=== PATIENT | female | born 1960 | race American Indian/Alaskan Native ===

== ENCOUNTER 2022-01-10 10:00 | Inpatient (IN) | payer SELFPAY ==
[2022-01-10 12:15] LABS: Basophils % (Auto) 0.1 % (0.0-1.8); Eosinophils % (Auto) 0.2 % (0.0-4.3); Hematocrit 43.8 % (30.3-42.9); Hemoglobin 14.3 gm/dl (10.1-14.3); Lymphocytes # (Auto) 0.8 K/mm3 (1.2-5.4); Lymphocytes % (Auto) 6.6 % (13.4-35.0); Mean Corpuscular HGB Conc 33 % (30-34); Mean Corpuscular Volume 99 fl (79-97); Monocytes # (Auto) 0.4 K/mm3 (0.0-0.8); Monocytes % (Auto) 3.5 % (0.0-7.3); Platelet Count 279 K/mm3 (140-440); Red Blood Count 4.43 M/mm3 (3.65-5.03); Red Cell Distribution Width 13.1 % (13.2-15.2)
[2022-01-10 12:32] LABS: Alanine Aminotransferase 437 units/L (7-56); Albumin 4.2 g/dL (3.9-5); Bilirubin,Direct 2.4 mg/dL (0-0.2); Blood Urea Nitrogen 15 mg/dL (7-17); Calcium 9.3 mg/dL (8.4-10.2); Hemolysis Index 7
[2022-01-10 12:43] LABS: BUN/Creatinine Ratio 21
[2022-01-10] MEDS ORDERED: SODIUM CHLORIDE 0.9% 1000 ML 1,000 ML IV ONE (12:57)
[2022-01-10] MEDS ORDERED: MORPHINE 4 MG/1 ML INJ IM ONE (12:57)
[2022-01-10] MEDS ORDERED: ONDANSETRON 4 MG/2 ML INJ IV ONE (12:57)
--- NOTE | 2022-01-10 13:46 | Ultrasound Report ---
ULTRASOUND ABDOMEN, LIMITED INDICATION / CLINICAL INFORMATION: upper abdominal pain - gallbladder. COMPARISON: None available. FINDINGS: PANCREAS: Visualized portion shows no significant abnormality. LIVER: No significant abnormality. Normal hepatopedal blood flow in the main portal vein. GALLBLADDER: Distended with stones. BILE DUCTS: No significant abnormality. Common bile duct measures 1.9 mm. FREE FLUID: None. ADDITIONAL FINDINGS: None. IMPRESSION: 1. Gallbladder distended with stones. 2. No biliary dilatation. Signer Name: Darius Koenig MD Signed: 01/10/2022 1:42 PM Workstation Name: [id number]
[2022-01-10 15:27] LABS: Hepatitis B Surface Antigen Non-Reactive (Negative); Hepatitis C Virus Antibody Non-Reactive (NonReactive)
[2022-01-10] MEDS ORDERED: PIPERACILLIN/TAZOBACTAM 3.375 3.375 GM/50 ML BAG IV ONE (15:40)
[2022-01-10] MEDS ORDERED: MORPHINE 4 MG/1 ML INJ IV ONE (16:05)
--- NOTE | 2022-01-10 16:10 | Cat Scan Report ---
CT ABDOMEN AND PELVIS WITH CONTRAST INDICATION / CLINICAL INFORMATION: abdominal pain upper abdominal pain 100ml of [id number] . TECHNIQUE: Axial CT images were obtained through the abdomen and pelvis after 100 cc of Omnipaque 350 IV contras t. Sagittal and coronal reformatted images. All CT scans at this location are performed using CT dose reduction for ALARA by means of automated exposure control. COMPARISON: Ultrasound abdomen limited performed earlier today FINDINGS: LOWER CHEST: Mild linear atelectasis or scarring is noted in the lingula and right lower lobe. No inf iltrate or effusion. LIVER: No significant abnormality. GALLBLADDER: Multiple stones are identified in the gallbladder with the largest measuring 1.7 cm near the gallbladder neck. There is no evidence for gallbladder distention on CTA. No pericholecystic flu id. BILE DUCTS: No significant abnormality. PANCREAS: There appears to be trace fluid and inflammatory changes near the distal pancreas. No discr ete mass. This may represent mild acute pancreatitis. SPLEEN: No significant abnormality. ADRENALS: No significant abnormality. RIGHT KIDNEY and URETER: No significant abnormality. LEFT KIDNEY and URETER: No significant abnormality. STOMACH and SMALL BOWEL: No significant abnormality. COLON: No significant abnormality. APPENDIX: No significant abnormality. PERITONEUM: No large ascites. No free air. No fluid collection. LYMPH NODES: No significant adenopathy. AORTA and ARTERIES: No significant abnormality. IVC and VEINS: No significant abnormality. URINARY BLADDER: No significant abnormality. REPRODUCTIVE ORGANS: No significant abnormality. ADDITIONAL FINDINGS: None. SKELETAL SYSTEM: Mild lumbar spondylosis. IMPRESSION: Cholelithiasis but no evidence for acute cholecystitis on CT. Subtle inflammatory changes are suggested involving the distal pancreas. Correlate for acute intersti tial pancreatitis. Signer Name: Andrew Selby Jr, MD Signed: 01/10/2022 4:05 PM Workstation Name: [id number]
[2022-01-10 16:55] LABS: INR 0.88 (0.87-1.13)
[2022-01-10 17:12] LABS: Hyaline Casts,Urine 4 /LPF; Mucus,Urine 3+ /HPF
[2022-01-10 17:28] LABS: Color,Urine Amber (Yellow)
--- NOTE | 2022-01-10 18:50 | History and Physical Report ---
History of Present Illness Chief complaint: My stomach hurts History of present illness: 61 YO Female with HTN, Mild Intermittent Asthma, Obesity presents to ED for evaluation. Pt reports "my stomach hurts". Patient states that she has experienced abdominal pain that began at 0100 hrs. shortly after eating a hamburger. Patient states that her abdominal pain is 6-01/2010, intermittent, worsened with meals, without alleviating factors. Patient acknowledges nausea. EMS was notified and upon arrival the patient was found to be in distress and subsequent transported to [facility] for further care and evaluation of the af orementioned symptoms. The patient was seen and evaluated in the emergency department. All lab and imaging studies reviewed. Patient with CT scan of the abdomen and pelvis and was found to have evidence of gallstone pancreatitis, elevated liver function tests, as well as systemic inflammatory response syndrome. Surgery team consulted in ED. GI team notified in ED. Patient admitted to medical floor due to increased risk of worsening symptoms and for medical stabilization. Patient has fever, chills, chest pain, palpitation, productive cough, skin rash, recent contact, ingestion of food/water from new or different sources, known exposure to COVID-19. No prior admission for review. No medication listed at time of admission for reconciliation. Advanced care planning conducted in ED. Past History Past Medical History: hypertension, other (See HPI) Past Surgical History: No surgical history, Other (Reviewed) Social history: single. denies: smoking, alcohol abuse, prescription drug abuse Family history: hypertension Medications and Allergies Allergies Allergy/AdvReac Type Severity Reaction Status Date / Time No Known Allergies Allergy Unverified 01/10/22 10:13 Review of Systems Constitutional: no weight loss, no weight gain, no fever, no chills Ears, nose, mouth and throat: no ear pain, no ear discharge, no nasal congestion, no sinus pressure Breasts: no change in shape, no swelling Cardiovascular: no chest pain, no palpitations, no edema, no syncope Respiratory: no cough, no shortness of breath Gastrointestinal: abdominal pain, nausea, no coffee ground emesis, no lactose intolerance Genitourinary Female: no pelvic pain, no flank pain, no dysuria, no urinary frequency, no urgency Rectal: no pain, no incontinence, no bleeding Musculoskeletal: no neck stiffness, no neck pain, no shooting arm pain, no arm numbness/tingling, no low back pain Integumentary: no rash, no pruritis, no redness, no sores, no wounds Neurological: no head injury, no transient paralysis, no weakness, no parathesias, no tingling, no seizures, no syncope Psychiatric: no anxiety, no memory loss, no change in sleep habits, no insomnia, no change in appetite, no suicidal ideation Endocrine: no cold intolerance, no heat intolerance, no polydipsia, no excessive sweating Hematologic/Lymphatic: no easy bruising, no easy bleeding Allergic/Immunologic: no urticaria, no allergic rhinitis, no wheezing Exam - Constitutional Vitals: Temp Pulse Resp BP Pulse Ox 98.3 F 60 18 164/79 96 01/10/22 16:43 01/10/22 16:43 01/10/22 16:43 01/10/22 16:43 01/10/22 16:43 General appearance: Present: mild distress, obese - EENT Eyes: Present: PERRL ENT: hearing intact, clear oral mucosa - Neck Neck: Present: supple, normal ROM - Respiratory Respiratory effort: normal Respiratory: bilateral: CTA - Cardiovascular Heart Sounds: Present: S1 & S2. Absent: rub, click - Extremities Extremities: pulses symmetrical, No edema Peripheral Pulses: within normal limits - Abdominal General gastrointestinal: Present: soft, tender, non-distended, normal bowel sounds Localized gastrointestinal: tender: diffuse Female genitourinary: Present: normal - Integumentary Integumentary: Present: clear, warm, dry - Musculoskeletal Musculoskeletal: gait normal, strength equal bilaterally - Psychiatric Psychiatric: appropriate mood/affect, intact judgment & insight - Neurologic Neurologic: CNII-XII intact, moves all extremities Results - Labs CBC & Chem 7: 01/10/22 11:31 01/10/22 11:31 Labs: Abnormal lab results 01/10/22 01/10/22 01/10/22 Range/Units 11:31 11:31 11:31 WBC 11.5 H (4.5-11.0) K/mm3 Hct 43.8 H (30.3-42.9) % MCV 99 H (79-97) fl RDW 13.1 L (13.2-15.2) % Lymph % (Auto) 6.6 L (13.4-35.0) % Lymph # (Auto) 0.8 L (1.2-5.4) K/mm3 Seg Neutrophils % 89.6 H (40.0-70.0) % Seg Neutrophils # 10.3 H (1.8-7.7) K/mm3 Glucose 178 H (65-100) mg/dL Total Bilirubin 3.00 H (0.1-1.2) mg/dL Direct Bilirubin 2.4 H (0-0.2) mg/dL AST 635 H (5-40) units/L ALT 437 H (7-56) units/L Alkaline Phosphatase 171 H (35-129) units/L Lipase 5216 H (13-60) units/L Assessment and Plan - Patient Problems (1) Acute gallstone pancreatitis Current Visit: Yes Status: Acute Plan to address problem: CT scan abdomen pelvis, abdominal ultrasound, surgery team consulted, GI team consulted, IV fluid resuscitation therapy, bowel rest, supportive care, pain control. (2) Obesity (BMI 30-39.9) Current Visit: Yes Status: Acute Plan to address problem: Balanced diet, increase physical activity discharge (3) SIRS (systemic inflammatory response syndrome) Current Visit: Yes Status: Acute Plan to address problem: Empiric IV antibiotic therapy x1 dose, CBC, repeat CBC in AM. (4) Acute hepatitis Current Visit: Yes Status: Acute Plan to address problem: Hepatitis profile, supportive care. (5) DVT prophylaxis Current Visit: Yes Status: Acute Plan to address problem: SCD to bilateral lower extremities while in bed (6) Advance care planning Current Visit: Yes Status: Acute Plan to address problem: Disease education conducted, care plan discussed, diagnosis discussed, prognosis discussed, patient is full code. Patient acknowledges understanding and agreement with care plan, +30 minutes. (7) Preventative health care Current Visit: Yes Status: Acute Plan to address problem: Patient counseled regarding risk factor reduction, outpatient follow-up with primary care physician for all age and risk factor appropriate screening test. +30 minutes.
[2022-01-10] MEDS ORDERED: ACETAMINOPHEN 325 MG TAB PO PRN (20:00)
[2022-01-10] MEDS ORDERED: oxyCODONE /ACETAMINOPHEN 5-325MG TAB PO PRN (20:00)
[2022-01-10] MEDS ORDERED: ALBUTEROL 2.5 MG/3 ML NEBU IH PRN (20:00)
[2022-01-10] MEDS: HYDROmorphone 0.5 MG/0.5 ML INJ IV PRN (21:55)
[2022-01-10] MEDS ORDERED: FAMOTIDINE 20 MG/2 ML INJ IV SCH (22:00)
[2022-01-10] MEDS: ONDANSETRON 4 MG/2 ML INJ IV PRN (22:01)
[2022-01-10] MEDS: SODIUM CHLORIDE 0.9% 1000 ML 1,000 ML IV SCH (22:07)
[2022-01-11] MEDS: ONDANSETRON 4 MG/2 ML INJ IV PRN (04:07)
[2022-01-11] MEDS: HYDROmorphone 0.5 MG/0.5 ML INJ IV PRN ×4 (04:07→21:51)
[2022-01-11] MEDS: SODIUM CHLORIDE 0.9% 1000 ML 1,000 ML IV SCH ×2 (04:08→21:51)
[2022-01-11 07:20] LABS: Basophils % (Auto) 0.1 % (0.0-1.8); Eosinophils # (Auto) 0.2 K/mm3 (0.0-0.4); Eosinophils % (Auto) 1.4 % (0.0-4.3); Hematocrit 36.9 % (30.3-42.9); Lymphocytes # (Auto) 1.3 K/mm3 (1.2-5.4); Lymphocytes % (Auto) 12.2 % (13.4-35.0); Mean Corpuscular HGB Conc 33 % (30-34); Mean Corpuscular Volume 99 fl (79-97); Monocytes # (Auto) 0.7 K/mm3 (0.0-0.8); Monocytes % (Auto) 6.6 % (0.0-7.3); Platelet Count 241 K/mm3 (140-440); Red Blood Count 3.74 M/mm3 (3.65-5.03); Red Cell Distribution Width 13.1 % (13.2-15.2)
[2022-01-11 07:39] LABS: Alanine Aminotransferase 259 units/L (7-56); Albumin 3.6 g/dL (3.9-5); BUN/Creatinine Ratio 13; Blood Urea Nitrogen 8 mg/dL (7-17); Calcium 8.7 mg/dL (8.4-10.2); Hemolysis Index 1
[2022-01-11] MEDS: FAMOTIDINE 20 MG/2 ML INJ IV SCH ×2 (09:55→21:51)
--- NOTE | 2022-01-11 10:02 | Gastroenterology Consultation ---
History of Present Illness - Reason for Consult Consult date: 01/11/22 biliary pancreatitis Requesting physician: DEMAR ALFARO - History of Present Illness The patient is a 61 yo female who presented with 1 day of abd pain in mid/epigastric abdomen with associated n/v. has had mild, intermittent abd pains in the past, but not to the level/degree experienced yesterday. Found to have elevated liver enzymes and labs/ct scan consistent with acute pancreatitis. Denies fevers/chills. Social alcohol intake but no excessive use. Denies prior h/o pancreatitis or new recent meds. has had improvement in abd pain with current management/since admission. CBD non-dilated on US. Past History Past Medical History: hypertension, other (See HPI) Past Surgical History: No surgical history, Other (Reviewed) Social history: single. denies: smoking, alcohol abuse, prescription drug abuse Family history: hypertension Medications and Allergies Allergies Allergy/AdvReac Type Severity Reaction Status Date / Time No Known Allergies Allergy Unverified 01/10/22 10:13 Home Medications Medication Instructions Recorded Confirmed Last Taken Type No Known Home Medications [No 01/11/22 01/11/22 Unknown History Reported Home Medications] Active Meds: Active Medications Acetaminophen (Acetaminophen 325 Mg Tab) 650 mg PO Q4H PRN PRN Reason: Pain MILD(1-3)/Fever >100.5/FLORES Albuterol (Albuterol 2.5 Mg/3 Ml Nebu) 2.5 mg IH Q4HRT PRN PRN Reason: Shortness Of Breath Famotidine (Famotidine 20 Mg/2 Ml Inj) 20 mg IV BID AAMIR Last Admin: 01/11/22 09:55 Dose: 20 mg Hydromorphone HCl (Hydromorphone 0.5 Mg/0.5 Ml Inj) 0.5 mg IV Q3H PRN PRN Reason: Pain , Severe (7-10) Last Admin: 01/11/22 09:55 Dose: 0.5 mg Sodium Chloride (Nacl 0.9% 1000 Ml) 1,000 mls @ 125 mls/hr IV DIRECT AAMIR Last Admin: 01/11/22 04:08 Dose: 125 mls/hr Ondansetron HCl (Ondansetron 4 Mg/2 Ml Inj) 4 mg IV Q8H PRN PRN Reason: Nausea And Vomiting Last Admin: 01/11/22 04:07 Dose: 4 mg Oxycodone/Acetaminophen (Oxycodone /Acetaminophen 5-325mg Tab) 1 tab PO Q6H PRN PRN Reason: Pain, Moderate (4-6) Sodium Chloride (Sodium Chloride 0.9% 10 Ml Flush Syringe) 10 ml IV BID AAMIR Last Admin: 01/11/22 09:55 Dose: 10 ml Sodium Chloride (Sodium Chloride 0.9% 10 Ml Flush Syringe) 10 ml IV PRN PRN PRN Reason: LINE FLUSH Stop: 01/15/22 18:48 Reviewed/updated patient's home and current medications Review of Systems - Review of Systems All systems: negative (per HPI) Exam - Constitutional Vital Signs: Temp Pulse Resp BP Pulse Ox 98.6 F 71 18 118/58 98 01/11/22 04:56 01/11/22 04:56 01/11/22 08:44 01/11/22 04:56 01/11/22 08:44 General appearance: no acute distress - Respiratory Respiratory effort: normal Respiratory: bilateral: CTA - Cardiovascular Rhythm: regular - Gastrointestinal General gastrointestinal: Present: soft, tender (epigastric ttp) - Integumentary Integumentary: Present: clear, warm - Neurologic Neurological: alert and oriented x3 - Psychiatric Psychiatric: appropriate mood/affect - Labs CBC & Chem 7: 01/11/22 06:22 01/11/22 06:22 Lab Results: Laboratory Results - last 24 hr 01/10/22 01/10/22 01/10/22 11:31 11:31 11:31 WBC 11.5 H RBC 4.43 Hgb 14.3 Hct 43.8 H MCV 99 H MCH 32 MCHC 33 RDW 13.1 L Plt Count 279 Lymph % (Auto) 6.6 L [place] % (Auto) 3.5 Eos % (Auto) 0.2 Baso % (Auto) 0.1 Lymph # (Auto) 0.8 L [place] # (Auto) 0.4 Eos # (Auto) 0.0 Baso # (Auto) 0.0 Seg Neutrophils % 89.6 H Seg Neutrophils # 10.3 H PT INR Sodium 138 Potassium 4.2 Chloride 103.6 Carbon Dioxide 24 Anion Gap 15 BUN 15 Creatinine 0.7 Estimated GFR > 60 BUN/Creatinine Ratio 21 Glucose 178 H Calcium 9.3 Total Bilirubin 3.00 H Direct Bilirubin 2.4 H Indirect Bilirubin 0.6 AST 635 H ALT 437 H Alkaline Phosphatase 171 H Ammonia Total Protein 6.9 Albumin 4.2 Albumin/Globulin Ratio 1.6 Lipase 5216 H Urine Color Urine Turbidity Specific [place] (Man) Ur Protein (Man) Ur Ketones (Man) Ur Nitrite (Man) Ur Reducing Substances Urine Bilirubin (Man) Urine Ictotest Leukocyte Esterase (Man) Urine WBC (Auto) Urine RBC (Auto) U Epithel Cells (Auto) Urine RBC (Manual) Uric Acid Crystals Hyaline Casts Urine Mucus Plasma/Serum Alcohol Hepatitis A IgM Ab Hep Bs Antigen Hep B Core IgM Ab Hepatitis C Antibody 01/10/22 01/10/22 01/10/22 13:05 13:05 13:05 WBC RBC Hgb Hct MCV MCH MCHC RDW Plt Count Lymph % (Auto) [place] % (Auto) Eos % (Auto) Baso % (Auto) Lymph # (Auto) [place] # (Auto) Eos # (Auto) Baso # (Auto) Seg Neutrophils % Seg Neutrophils # PT INR Sodium Potassium Chloride Carbon Dioxide Anion Gap BUN Creatinine Estimated GFR BUN/Creatinine Ratio Glucose Calcium Total Bilirubin Direct Bilirubin Indirect Bilirubin AST ALT Alkaline Phosphatase Ammonia 39.0 Total Protein Albumin Albumin/Globulin Ratio Lipase Urine Color Urine Turbidity Specific [place] (Man) Ur Protein (Man) Ur Ketones (Man) Ur Nitrite (Man) Ur Reducing Substances Urine Bilirubin (Man) Urine Ictotest Leukocyte Esterase (Man) Urine WBC (Auto) Urine RBC (Auto) U Epithel Cells (Auto) Urine RBC (Manual) Uric Acid Crystals Hyaline Casts Urine Mucus Plasma/Serum Alcohol < 0.01 Hepatitis A IgM Ab Non-reactive Hep Bs Antigen Non-reactive Hep B Core IgM Ab Non-reactive Hepatitis C Antibody Non-reactive 01/10/22 01/10/22 01/11/22 16:02 16:12 06:22 WBC 11.0 RBC 3.74 Hgb 12.0 Hct 36.9 D MCV 99 H MCH 32 MCHC 33 RDW 13.1 L Plt Count 241 Lymph % (Auto) 12.2 L [place] % (Auto) 6.6 Eos % (Auto) 1.4 Baso % (Auto) 0.1 Lymph # (Auto) 1.3 [place] # (Auto) 0.7 Eos # (Auto) 0.2 Baso # (Auto) 0.0 Seg Neutrophils % 79.7 H Seg Neutrophils # 8.7 H PT 12.9 INR 0.88 Sodium Potassium Chloride Carbon Dioxide Anion Gap BUN Creatinine Estimated GFR BUN/Creatinine Ratio Glucose Calcium Total Bilirubin Direct Bilirubin Indirect Bilirubin AST ALT Alkaline Phosphatase Ammonia Total Protein Albumin Albumin/Globulin Ratio Lipase Urine Color Mera Urine Turbidity Clear Specific [place] (Man) 1.015 Ur Protein (Man) <30 mg dl Ur Ketones (Man) Negative Ur Nitrite (Man) Negative Ur Reducing Substances Not Reportable Urine Bilirubin (Man) Negative Urine Ictotest Not Reportable Leukocyte Esterase (Man) Negative Urine WBC (Auto) 3.0 Urine RBC (Auto) 21.0 U Epithel Cells (Auto) 6.0 Urine RBC (Manual) Negative Uric Acid Crystals Few Hyaline Casts 4 Urine Mucus 3+ Plasma/Serum Alcohol Hepatitis A IgM Ab Hep Bs Antigen Hep B Core IgM Ab Hepatitis C Antibody 01/11/22 06:22 WBC RBC Hgb Hct MCV MCH MCHC RDW Plt Count Lymph % (Auto) [place] % (Auto) Eos % (Auto) Baso % (Auto) Lymph # (Auto) [place] # (Auto) Eos # (Auto) Baso # (Auto) Seg Neutrophils % Seg Neutrophils # PT INR Sodium 142 Potassium 3.7 Chloride 110.0 H Carbon Dioxide 24 Anion Gap 12 BUN 8 Creatinine 0.6 Estimated GFR > 60 BUN/Creatinine Ratio 13 Glucose 83 Calcium 8.7 Total Bilirubin 1.10 Direct Bilirubin Indirect Bilirubin AST 162 H ALT 259 H Alkaline Phosphatase 138 H Ammonia Total Protein 5.7 L Albumin 3.6 L Albumin/Globulin Ratio 1.7 Lipase Urine Color Urine Turbidity Specific [place] (Man) Ur Protein (Man) Ur Ketones (Man) Ur Nitrite (Man) Ur Reducing Substances Urine Bilirubin (Man) Urine Ictotest Leukocyte Esterase (Man) Urine WBC (Auto) Urine RBC (Auto) U Epithel Cells (Auto) Urine RBC (Manual) Uric Acid Crystals Hyaline Casts Urine Mucus Plasma/Serum Alcohol Hepatitis A IgM Ab Hep Bs Antigen Hep B Core IgM Ab Hepatitis C Antibody - Imaging CT Scan: report reviewed Assessment and Plan 1. Acute biliary pancreatitis - IVF's, and supportive care/pain control, consider trial of clears later today if sx's stable. will need eventual ccy, timing per surgery and clinical course of acute pancreatitis. 2. Abnormal liver enzymes - improved since admission, suspect passed stone. non dilated CBD on US. however given degree of elevation, will obtain MRCP to r/o obstructive process/possible retained stone. trend liver enzymes
--- NOTE | 2022-01-11 16:12 | Progress Note ---
Assessment and Plan (1) Acute gallstone pancreatitis Current Visit: Yes Status: Acute Plan to address problem: CT scan abdomen pelvis, abdominal ultrasound, surgery team consulted, GI team consulted, IV fluid resuscitation therapy, bowel rest, supportive care, pain control. (2) Obesity (BMI 30-39.9) Current Visit: Yes Status: Acute Plan to address problem: Balanced diet, increase physical activity discharge (3) SIRS (systemic inflammatory response syndrome) Current Visit: Yes Status: Acute Plan to address problem: Empiric IV antibiotic therapy x1 dose, CBC, repeat CBC in AM. (4) Acute hepatitis Current Visit: Yes Status: Acute Plan to address problem: Hepatitis profile, supportive care. (5) DVT prophylaxis Current Visit: Yes Status: Acute Plan to address problem: SCD to bilateral lower extremities while in bed (6) Advance care planning Current Visit: Yes Status: Acute Plan to address problem: Disease education conducted, care plan discussed, diagnosis discussed, prognosis discussed, patient is full code. Patient acknowledges understanding and agreement with care plan, +30 minutes. (7) Preventative health care Current Visit: Yes Status: Acute Plan to address problem: Patient counseled regarding risk factor reduction, outpatient follow-up with primary care physician for all age and risk factor appropriate screening test. +30 minutes. Subjective Date of service: 01/11/22 Objective - Constitutional Vitals: Vital Signs - 12hr 01/11/22 01/11/22 01/11/22 04:56 08:44 11:47 Temperature 98.6 F 98.6 F Pulse Rate 71 76 Respiratory 20 18 18 Rate Blood Pressure 118/58 112/65 O2 Sat by Pulse 91 98 93 Oximetry - Labs CBC & Chem 7: 01/11/22 06:22 01/11/22 06:22 Labs: Abnormal lab results 01/11/22 01/11/22 Range/Units 06:22 06:22 MCV 99 H (79-97) fl RDW 13.1 L (13.2-15.2) % Lymph % (Auto) 12.2 L (13.4-35.0) % Seg Neutrophils % 79.7 H (40.0-70.0) % Seg Neutrophils # 8.7 H (1.8-7.7) K/mm3 Chloride 110.0 H (98-107) mmol/L AST 162 H (5-40) units/L ALT 259 H (7-56) units/L Alkaline Phosphatase 138 H (35-129) units/L Total Protein 5.7 L (6.3-8.2) g/dL Albumin 3.6 L (3.9-5) g/dL
[2022-01-12] MEDS: HYDROmorphone 0.5 MG/0.5 ML INJ IV PRN ×2 (04:22→09:29)
[2022-01-12] MEDS: SODIUM CHLORIDE 0.9% 1000 ML 1,000 ML IV SCH (04:33)
[2022-01-12] MEDS: FAMOTIDINE 20 MG/2 ML INJ IV SCH (09:29)
[2022-01-12 12:57] VITALS: BP 107/41
--- NOTE | 2022-01-12 13:56 | Gastroenterology Progress Note ---
Assessment and Plan 1. Acute biliary pancreatitis - clinically doing better; awaiting MRCP. cont supportive care/clears as tolerated, trend liver enzymes and will fu mrcp results. needs eventual ccy as well. Subjective Date of service: 01/12/22 Principal diagnosis: biliary pancreatitis Interval history: pt feels better, abd pain improved. no fevers/chills or n/v Objective - Constitutional Vitals: Temp Pulse Resp BP Pulse Ox 97.8 F 55 L 18 107/41 99 01/12/22 10:52 01/12/22 10:52 01/12/22 10:52 01/12/22 10:52 01/12/22 10:52 General appearance: no acute distress - Respiratory Respiratory effort: normal Respiratory: bilateral: CTA - Cardiovascular Rhythm: regular Heart Sounds: Present: S1 & S2 - Gastrointestinal General gastrointestinal: Present: soft, non-distended - Labs CBC & Chem 7: 01/11/22 06:22 01/11/22 06:22 Labs: Laboratory Results - last 24 hr 01/12/22 00:33 Lipase 68 H
--- NOTE | 2022-01-12 14:41 | Discharge Summary ---
Providers - Providers Date of Admission: 01/10/22 18:49 Date of discharge: 01/12/22 Attending physician: DEMAR ALFARO Primary care physician: CON ORTIZ Hospitalization Condition: Stable Disposition: 30 STILL A PATIENT Final Discharge Diagnosis (Prints w/discharge instructions): -- acute billiary pancreatitis Time spent for discharge: 34 minutes Exam - Constitutional Vitals: Temp Pulse Resp BP Pulse Ox 97.8 F 55 L 18 107/41 99 01/12/22 10:52 01/12/22 10:52 01/12/22 10:52 01/12/22 10:52 01/12/22 10:52 Plan Activity: advance as tolerated Weight Bearing Status: Weight Bear as Tolerated Diet: low fat, low salt Additional Instructions: MRCP as outpt. f/u with GI in one week Follow up with: CON ORTIZ MD [Primary Care Provider] - 7 Days CHRISTI TAMAYO MD [Staff Physician] - 7 Days
== END 2022-01-12 17:10 | disposition home or self-care (01) | DRG 439 ==
LOC: ED 10:00 → 3A 18:49
PROVIDERS: ADMIT Internal Medicine; ATTEND Internal Medicine
DX: K85.10 Biliary acute pancreatitis without necrosis or infection (principal); B17.9 Acute viral hepatitis, unspecified; R65.10 Systemic inflammatory response syndrome (SIRS) of non-infectious origin without acute organ dysfunction; E66.9 Obesity, unspecified; I10 Essential (primary) hypertension; J45.20 Mild intermittent asthma, uncomplicated; Z68.37 Body mass index [BMI] 37.0-37.9, adult
CPT/HCPCS: 36415; 74177; 76705; 80048; 80053; 80074; 80076; 80320; 81001; 82140; 83690; 85025; 85610; G0378; J3490; G0480; J1170; J2270; J2405; J2543; J7030; Q9967